=== PATIENT | female | born 1945 | race Asian ===

== ENCOUNTER 2016-05-07 11:18 | Emergency (ER) | payer MEDICARE ==
[~2016-05-07] VITALS: Ht 154.9 cm; Wt 59.1 kg
--- OUTSIDE RECORDS SUMMARY | 2016-05-07 11:23 | XMS REPORT ---
Author Brett Concepcion [facility], [place] eClinicalWorks Address Unknown Phone Unavailable Care Team Providers Care Senior Loan Officer Name Role Phone Brett Thomas CP Unavailable Allergies, Adverse Reactions, Alerts Substance Reaction Event Type N.K.D.A. Info Not Available Non Drug Allergy Problems Problem Type Condition Code Onset Dates Condition Status Assessment Type 2 diabetes mellitus without complications E11.9 Active Problem Essential (primary) hypertension I10 Active Problem Hyperlipidemia, unspecified E78.5 Active Problem Chest discomfort R07.89 Active Assessment Essential (primary) hypertension I10 Active Assessment Hyperlipidemia, unspecified E78.5 Active Problem Type 2 diabetes mellitus without complications E11.9 Active Assessment Chest discomfort R07.89 Active Medications Medication Code System Code Instructions Start Date End Date Status Dosage Refresh Tears [facility] [address]-83 0.5 % Ophthalmic 24 time(s) a day 1 drop into affected eye as needed BuPROPion HCl (SR) [facility] [address]-81 150 MG Orally Twice a day [address] [facility] [address] Orally qd [address] [facility] [address]-19 25 MG Orally Once a day [address] [facility] [address]-93 5 MG Orally Once a day [address] [facility] [address]-92 40 MG Orally Once a day [address] [facility] [address]31 120 MG Orally qd [address] [facility] [address]-53 5 MG Orally Once a day [address] [facility] [address]-21 2 MG Orally Once a day 1 tablet with breakfast or the first main meal of the day Calcium 600 + D [facility] 95398-99323 Orally bid 1 tab Losartan Potassium-HCTZ [facility] [address]-13 100-12.5 MG Orally Once a day [address] [facility] [address]-79 10 MG Orally Once a day 1 tablet with a meal Metformin HCl [facility] [address]-51 500 MG Orally Twice a day 2 tablet with meals Allergy [facility] [address]-18 25 MG Orally qhs 1 capsule as needed Aspirin [facility] [address]80-82684 81 MG Orally Once a day 1 tablet Procedures Procedure Coding System Code Date Office Visit, New Pt., Level 4 CPT-4 36977 Dec 29, 2014 ELECTROCARDIOGRAM, COMPLETE CPT-4 52467 Dec 29, 2014 Vital Signs Date/Time: Dec 29, 2014 BMI 25.00 Index Weight 128 lbs Height 5 ft in Cardiac Monitoring Heart Rate 90 /min Oximetry 97% % Blood Pressure Diastolic 70 mm Hg Blood Pressure Systolic 122 mm Hg Results Name Result Date Reference Range Unit Abnormality Flag Atria ECG Summary Purpose eClinicalWorks Submission
--- OUTSIDE RECORDS SUMMARY | 2016-05-07 11:23 | XMS REPORT ---
Author Brett Concepcion [facility] eClinicalWorks Address Unknown Phone Unavailable Care Team Providers Care Library Supervisor Name Role Phone Brett Thomas CP Unavailable [...] Date End Date Status Dosage Refresh Tears [facility] [address]-23 0.5 % Ophthalmic 24 time(s) a day 1 drop into affected eye as needed Tradjenta [facility] [address]-61 5 MG Orally Once a day 1 tablet Losartan Potassium-HCTZ [facility] [address]-31 100-12.5 MG Orally Once a day 1 tablet Calcium 600 + D [facility] 04289-39356 Orally bid 1 tab Aspirin [facility] 87888-89068 81 MG Orally Once a day 1 tablet Allergy [facility] [address]-33 25 MG Orally qhs 1 capsule as needed Amlodipine Besylate [facility] [address]-10 5 MG Orally Once a day 1 tablet Hydrochlorothiazide [facility] [address]-36 25 MG Orally Once a day 1 tablet Multivitamin [facility] 34448-43008 Orally qd 1 tab Ginkgo Biloba [facility] [address]07-[address] 120 MG Orally qd 1 cap Glimepiride [facility] [address]-55 2 MG Orally Once a day 1 tablet with breakfast or the first main meal of the day Lovastatin [facility] [address]-59 10 MG Orally Once a day 1 tablet with a meal Pantoprazole Sodium [facility] [address]-89 40 MG Orally Once a day 1 tablet BuPROPion HCl (SR) [facility] [address]-65 150 MG Orally Twice a day 1 tablet Metformin HCl [facility] [address]-02 500 MG Orally Twice a day 2 tablet with meals Procedures Procedure Coding System Code Date Office Visit, Est Pt., Level 3 CPT-4 30799 Jan 14, 2015 Vital Signs Date/Time: Jan 14, 2015 BMI 25.78 Index Weight 132 lbs Height 5 ft in Cardiac Monitoring Heart Rate 95 /min Oximetry 98% % Blood Pressure Diastolic 80 mm Hg Blood Pressure Systolic 115 mm Hg Results No Known Results Summary Purpose eClinicalWorks Submission
[2016-05-07 11:25] VITALS: TEMP 97.6; Ht 154.9 cm; Wt 59.1 kg
--- NOTE | 2016-05-07 11:30 | NUR ---
Translation Pt in room with friend/coworker who is translating for her.
--- NOTE | 2016-05-07 11:40 | NUR ---
Compaint Of Difficult to figure out exactly what is going on. Various complaints. Dizziness, N/V. Tired. Heart Palpitations.
[2016-05-07] MEDS ORDERED: METF-462 PO (12:04)
[2016-05-07] MEDS ORDERED: TRAZ-170 PO (12:04)
[2016-05-07] MEDS ORDERED: OMEP10CA4 PO (12:04)
[2016-05-07] MEDS ORDERED: GABA-336 PO (12:04)
[2016-05-07] MEDS ORDERED: LOSA1TAB96 PO (12:04)
[2016-05-07] MEDS ORDERED: PIOG30TA2 PO (12:04)
[2016-05-07] MEDS ORDERED: LOVA10TA2 PO (12:04)
[2016-05-07] MEDS ORDERED: PANT40TA PO (12:04)
[2016-05-07] MEDS ORDERED: MECL12.585 PO (12:04)
--- NOTE | 2016-05-07 12:22 | ERPDOC ---
Departure Disposition Decision Date: May 07, 2016 Disposition Decision Time: 13:52 (HARDEEP DUMONT APRN) Disposition: 01 DISCHARGED HOME, SELF-CARE Impression Impression (HARDEEP DUMONT APRN) Impression: Primary Impression: Nausea & vomiting Vomiting type: unspecified Vomiting Intractability: non-intractable Qualified Codes: R11.2 - Nausea with vomiting, unspecified Additional Impressions: Heart palpitations Dizziness, nonspecific Severity: Moderate (HARDEEP DUMONT APRN) Condition: Improved Seen By: Mid-level only (HARDEEP DUMONT APRN) Referrals: LARISA FARLEY MD (Family) Patient Instructions: Acute Nausea and Vomiting (ED), Gastroenteritis (ED), Palpitations (ED) Problems/Meds/Labs Reviewed?: Yes Medications reviewed and manag: Yes (HARDEEP DUMONT APRN) Additional Instructions: You may dissolve 1 tab of Zofran 4mg on your tongue every 4-6 hours as needed for nausea/vomiting. Stay well hydrated, drink plenty of water. If you symptoms continue please follow with your PCP for re-evaluation Monday, sooner if worsting symptoms. Follow treatment plan. Follow up care ordered?: Yes Mental Status: Alert, Oriented (HARDEEP DUMONT APRN) Scripts Ondansetron (Zofran Odt) 4 Mg Tab.rapdis 4 MG PO Q4-6HPRN, #20 TAB Oral Disintegrating Tablet Prov: HARDEEP DUMONT APRN 05/07/16 HPI - General Medical General Chief Complaint: Palpitations Stated Complaint: VOMITING/DIZZY Time Seen by Provider: 12:22 Source: patient Exam Limitations: language barrier ( Hang from nutrition services intrepreted for provider) (HARDEEP DUMONT APRN) Time Seen by Provider: 12:08 (RANDALL MACEDO DO) HPI - General Medical Initial Comments 70-year-old female presents to ER with nausea and vomiting and complaining of racing heart with dizziness today. Patient states dizziness with nausea and vomiting started yesterday. Today she developed the wheezing heart. Patient is provider Dr. Shankar called ED today and said he saw patient in the office for vertigo and nausea/vomiting. Patient has vertigo when she is anxious or her BP becomes high. Patient was started on trazodone yesterday for "not sleeping and left side neck/shoulder pain". Patient did take first dose of Trazodone last night. Says it did help her neck and shoulder pain. Patient says she has vomited 3 times this morning. Patient admits she is very anxious at this time. Patient denies SOA, CP or diaphoresis. Patient states she has had a cardiac work up in the past which did not reveal any cardiac disease. Associated Symptoms: chest pain, nausea/vomiting, DENIES: cough, diaphoresis, fever/chills, headaches, loss of appetite, malaise, seizure, shortness of breath , syncope, weakness (SELVIN DUMONTS A PACKING TRACTOR MACHINE OPERATOR) Allergies: Coded Allergies: No Known Allergies (Unverified , 05/07/16) Past History Past Medical History Metabolic: hypercholesterolemia, hypertension, DENIES: diabetes ENMT: other (vertigo) Cardiac: DENIES: angina Respiratory: DENIES: asthma GI: DENIES: ulcers Female: DENIES: renal insufficiency Neurological: DENIES: seizures Musculoskeletal: DENIES: rheumatoid arthritis Hematologic: DENIES: anemia Psychological: anxiety (SELVIN DUMONTS A PACKING TRACTOR MACHINE OPERATOR) Family History Family PMH: FOUND: other (noncontributory) (SELVIN DUMONTS A PACKING TRACTOR MACHINE OPERATOR) Review of Systems Constitutional Constitutional: chills, dizziness, DENIES: fever, weakness (SELVIN DUMONTS A PACKING TRACTOR MACHINE OPERATOR) Eyes General: DENIES: erythema, exudate Lids/Accessories: DENIES: erythema, swelling Vision: DENIES: blurring (SELVIN DUMONTS A PACKING TRACTOR MACHINE OPERATOR) ENMT Ears: DENIES: pain Sinuses: DENIES: congestion, rhinorrhea Mouth/Throat: DENIES: sore throat (SELVIN DUMONTS A PACKING TRACTOR MACHINE OPERATOR) Cardiovascular Cardiac: DENIES: chest pain, murmur Rhythm/Rate: palpitations (SELVIN DUMONTS A PACKING TRACTOR MACHINE OPERATOR) Pulmonary Respiratory: DENIES: cough, dyspnea (SELVIN DUMONTS A PACKING TRACTOR MACHINE OPERATOR) GI Upper Abdomen: nausea, vomiting, DENIES: pain Lower Abdomen: DENIES: blood in stool, diarrhea, pain (SELVIN DUMONTS A PACKING TRACTOR MACHINE OPERATOR) General: DENIES: dysuria, pain (DUMONTSELVINS A PACKING TRACTOR MACHINE OPERATOR) Musculoskeletal General: pain, see HPI, tenderness (DUMONTSELVINS A PACKING TRACTOR MACHINE OPERATOR) Integumentary Skin: DENIES: color change, itching, rash (SELVIN DUMONTS A PACKING TRACTOR MACHINE OPERATOR) Neurological General: DENIES: ataxia, change in strength, numbness, paralysis/paresis, weakness (HARDEEP DUMONT A PACKING TRACTOR MACHINE OPERATOR) Psychiatric Psychiatric: DENIES: anxiety, depression, nervousness (HARDEEP DUMONT PACKING TRACTOR MACHINE OPERATOR) Physical Exam General General Nourishment: well nourished, well developed, no acute distress, adult General Body Habitus: well groomed (SELVIN DUMONTS Rula MILLER) Vitals and Pain First Documented Vital Signs Date Time Temp Pulse Resp B/P Pulse Ox O2 Delivery O2 Flow Rate FiO2 05/07/16 11:25 97.6 70 18 171/89 97 Room Air (RANDALL MACEDO DO) Vitals and Pain Weight: Kilograms: 59.100 Height (feet): 5 Height (inches): 1.00 Triage Pain Scale: (HARDEEP DUMONT APRN) Eyes (brief) Eyes Brief: found: EOMI, PERRL (SELVIN DUMONTS A PACKING TRACTOR MACHINE OPERATOR) ENMT (brief) ENMT Brief: FOUND: TM clear, TM good light reflex, mucosa moist, NOT FOUND: nasal exudate, nasal swelling, pharnyx erythema (SELVIN DUMONTS A PACKING TRACTOR MACHINE OPERATOR) Neck (brief) Neck: FOUND: trachea midline, NOT FOUND: adenopathy, tenderness, thyromegaly ( SELVIN DUMONTS A PACKING TRACTOR MACHINE OPERATOR) Respiratory (brief) Respiratory: FOUND: clear all chambers, equal bilaterally, symmetrical (SELVIN DUMONTS A PACKING TRACTOR MACHINE OPERATOR) Cardiovascular (brief) Cardiac: FOUND: regular rate, regular rhythm Capillary Refill: <2 sec Pulses: all distal extremities, equal, strong (SELVIN DUMONTS A PACKING TRACTOR MACHINE OPERATOR) Abdomen (brief) Abdominal Brief: FOUND: bowel normo active x4, soft, NOT FOUND: distended, tender (SELVIN DUMONTS A PACKING TRACTOR MACHINE OPERATOR) Musculoskeletal (brief) Musculoskeletal Brief: NOT FOUND: deformity, tenderness (SELVIN DUMONTS A PACKING TRACTOR MACHINE OPERATOR) Integumentary (brief) Integumentary Brief: FOUND: dry, pink, warm (SELVIN DUMONTS A PACKING TRACTOR MACHINE OPERATOR) Neurologic (brief) Neurological Brief: FOUND: CN w/o gross def to obs (SELVIN DUMONTS A PACKING TRACTOR MACHINE OPERATOR) Neurologic Mental Status: FOUND: alert, oriented Cranial Nerves: NOT FOUND: facial asymmetry Motor : Motor Side: bilateral Motor Location: morale officer strength Motor Degree: 5 Sensation: FOUND: soft touch intact x4 ext Cerebellar: FOUND: tandem walk (HARDEEP DUMONT PACKING TRACTOR MACHINE OPERATOR) Psychiatric (brief) Psychiatric Brief: FOUND: normal affect (HARDEEP DUMONT PACKING TRACTOR MACHINE OPERATOR) Differential Diagnoses Considering: Acute HI Considering: Bowel Obstruction, Dehydration, Food Poisoning, Gastroenteritis, Gastroparesis, Hypokalemia, Vertigo, Viral Labyrinthitis, Viral Syndrome, Vestibular Neuronitis (HARDEEP DUMONT PACKING TRACTOR MACHINE OPERATOR) Progress Results/Orders Orders Procedure Category Date Status Time Cbc W/Auto LAB 05/07/16 Complete Diff-Reflex Manual 12:26 Cmp - Comprehensive LAB 05/07/16 Complete Metabolic 12: Probnp LAB 05/07/16 Complete 12: Troponin I W LAB 05/07/16 Complete Hemolysis Index 12: INR LAB 05/07/16 Complete 12: EKG EKG 05/07/16 Taken 12:26 Iv Lock (Ed Only) EDM 05/07/16 Transmitted 12:26 Normal Saline (Normal PHA 05/07/16 Complete Saline Iv) 13:00 Ondansetron Inj PHA 05/07/16 Complete (Zofran) 13:00 (RANDALL MACEDO DO) Lab Results Laboratory Tests Test 05/07/16 12:13 White Blood Count 7.4T/MM3 Red Blood Count 3.98M/MM3 Hemoglobin 13.1GM/DL Hematocrit 39.0% Mean Corpuscular Volume 98.0UM3 Mean Corpuscular Hemoglobin 32.9UUG Mean Corpuscular Hemoglobin Concent 33.6GM/DL RDW Standard Deviation 40.4FL Platelet Count 242T/MM3 Mean Platelet Volume 10.2UM3 Immature Granulocyte % (Auto) 0.3% Neutrophils (%) (Auto) 73.3% Lymphocytes (%) (Auto) 20.4% Monocytes (%) (Auto) 3.3% Eosinophils (%) (Auto) 2.6% Basophils (%) (Auto) 0.1% Absolute Immature Granulocyte (auto 0.02T/MM3 Absolute Neutrophils (auto) 5.4T/MM3 Absolute Lymphocytes (auto) 1.5T/MM3 Absolute Monocytes (auto) 0.2T/MM3 Absolute Eosinophils (auto) 0.2T/MM3 Absolute Basophils (auto) 0.0T/MM3 Prothromb Time International Ratio 1.01 Turbidity < 20 Sodium Level 143MEQ/L Potassium Level 3.5MEQ/L Chloride Level 101MEQ/L Carbon Dioxide Level 28MEQ/L Anion Gap 14MEQ/L Blood Urea Nitrogen 21.0MG/DL Creatinine 0.5MG/DL Glomerular Filtration Rate Calc 122 BUN/Creatinine Ratio 42RATIO Glucose Level 165MG/DL Calculated Osmolality 282MOSM/KG Calcium Level 9.6MG/DL Total Bilirubin 0.50MG/DL Icterus Index < 2 Aspartate Amino Transf (AST/SGOT) 23U/L Alanine Aminotransferase (ALT/SGPT) 22U/L Alkaline Phosphatase 65U/L Troponin I < 0.012ng/ml YI-Jaa-H-Type Natriuretic Peptide 55PG/ML Total Protein 7.8G/DL Albumin 4.4G/DL Globulin 3.4G/DL Albumin/Globulin Ratio 1.3RATIO Chemistry Specimen Hemolysis 21 (RANDALL MACEDO DO) Medications Current ED Medications Sodium Chloride (Normal Saline IV) 1,000 ml @ 0 mls/hr Q0M ONCE IV Last administered on 05/07/16 13:02; Start 05/07/16 at 13:00; Stop 05/07/16 at 13:01 ; Status DC Ondansetron HCl (Zofran) 4 mg O ONCE IV Last administered on 05/07/16 13:03; Start 05/07/16 at 13:00; Stop 05/07/16 at 13:01; Status DC (RANDALL MACEDO DO) Progress Progress Labs unremarkable except for BUN having slight elevation indicating volume depletion and K 3.5 Troponin <0.012 EKG [address]R without any ST changes Patient does not having any orthostatic vital sign changes VS improving. Hang from nutrition services diplomatic interpreter/translator for provider discussing with patient labs, progress, treatment plan, follow-up with PCP and return precautions which patient verbalized understanding. I did discuss with patient and her granddaughter differential dx. of gastroenteritis. Patient feeling "much better " after IV fluids and zofran. (HARDEEP DUMONT APRN) EKG EKG : Rate: 60-100 Rhythm: sinus Alanson: normal QRS: normal Intervals: normal ST/T: normal Interpreted by: signing physician (Dr. Macedo) (HARDEEP DUMONT APRN) HARDEEP DUMONT APRN May 07, 2016 12:22 RANDALL MACEDO DO May 11, 2016 06:37
[2016-05-07 12:35] LABS: BASOPHILS % (AUTO) 0.1 % (0-2); EOSINOPHILS # (AUTO) 0.2 T/MM3 (0-0.5); EOSINOPHILS % (AUTO) 2.6 % (0-4); HGB - HEMOGLOBIN 13.1 GM/DL (12-16); IMMATURE GRANULOCYTE # (AUTO) 0.02 T/MM3 (0.00-0.03); IMMATURE GRANULOCYTE % (AUTO) 0.3 % (0.0-0.5); LYMPHOCYTES # (AUTO) 1.5 T/MM3 (1-4.8); LYMPHOCYTES % (AUTO) 20.4 % (23-45); MEAN CORPUSCULAR HGB 32.9 UUG (26-34); MEAN CORPUSCULAR HGB CONC(MCHC 33.6 GM/DL (31-37); MEAN PLATELET VOLUME 10.2 UM3 (9.4-12.4); MONOCYTES # (AUTO) 0.2 T/MM3 (0-0.8); MONOCYTES % (AUTO) 3.3 % (0-9.0); NEUTROPHILS #(AUTO)-ABSOLUTE 5.4 T/MM3 (1.8-7.7); NEUTROPHILS % (AUTO) 73.3 % (33-66); RED BLOOD COUNT 3.98 M/MM3 (4.00-5.20); WBC - WHITE BLOOD COUNT 7.4 T/MM3 (4.5-11.0)
[2016-05-07 12:36] LABS: INR 1.01 (0.76-1.04)
[2016-05-07 12:42] LABS: ALBUMIN 4.4 G/DL (3.5-5.0); ALBUMIN/GLOBULIN RATIO 1.3 RATIO (1.1-2.2); ALKALINE PHOSPHATASE 65 U/L (38-126); ALT (SGPT) 22 U/L (9-52); ANION GAP 14 MEQ/L (5-15); AST (SGOT) 23 U/L (14-36); BUN/CREATININE RATIO 42 RATIO (6-26); CALCIUM 9.6 MG/DL (8.4-10.2); CHLORIDE 101 MEQ/L (98-107); CO2 - CARBON DIOXIDE 28 MEQ/L (22-30); CREATININE 0.5 MG/DL (0.7-1.2); GLOMERULAR FILTRATION RATE 122; GLUCOSE 165 MG/DL (65-110); POTASSIUM 3.5 MEQ/L (3.6-5); SODIUM 143 MEQ/L (134-144); TOTAL PROTEIN 7.8 G/DL (6.3-8.2)
[2016-05-07 12:54] LABS: PROBNP 55 PG/ML (0-175)
[2016-05-07] MEDS ORDERED: ONDANSETRON 4mg/2ml INJECTION IV ONE (13:00)
[2016-05-07] MEDS ORDERED: NORMAL SALINE 1,000 ML IV ONE (13:00)
[2016-05-07] MEDS ORDERED: ONDA4TAB7 PO (13:59)
[2016-05-07 14:10] VITALS: BP 160/82; PULSE 76; RESP 18; O2SAT 97
== END 2016-05-07 14:10 | disposition home or self-care (01) ==
LOC: ED 11:18
DX: R11.2 Nausea with vomiting, unspecified (principal); R00.2 Palpitations; R42 Dizziness and giddiness; R07.9 Chest pain, unspecified; I10 Essential (primary) hypertension
CPT/HCPCS: 36000; 80053; 83880; 84484; 85025; 85610; 93005; 96361; 96374; 99284; J2405; J7030